=== PATIENT | female | born 1935 | race Caucasian/White ===

== ENCOUNTER 2018-05-06 02:31 | Observation (INO) ==
--- NOTE | 2018-05-06 03:21 | ED ---
HPI General Chief Complaint: Chest Pain Stated Complaint: Chest,back & rt arm pain x 2 hrs Time Seen by Provider: 05/06/18 03:13 Source: patient Mode of arrival: ambulatory Limitations: no limitations History of Present Illness HPI narrative: 83-year-old female presents from home for complaint of chest pain and right shoulder pain. Patient states she was awakened from sleep with 7 /10 back pain radiating into the chest. No shortness of breath no sweats no nausea no vomiting no mid scapular pain no abdominal pain. Patient has history of hypertension dyslipidemia. Patient has not had previous similar evaluation for chest pain or back pain. No history of known aortic disease aneurysm CAD or arrhythmia. Patient states discomfort at this time is 3-4/10 in intensity and is some improved. Patient took no medications prior to arrival to the emergency department. Patient also denies any recent febrile illness pleuritic chest pain near syncope or syncope. Patient also denies history of gastritis peptic ulcer disease pancreatitis. 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 Patient is not actively taking aspirin. MD complaint: Reports chest pain STEMI Alert: No Onset (ago): hour(s) Duration: constant and improved Onset: during rest and awoke with symptoms Pain location: Reports substernal Severity: moderate Quality: Reports tightness, aching and heaviness Pain radiation: Reports none Relieving factors: nothing Exacerbating factors: nothing Context: Denies recent illness, recent surgery, recent immobilization, recent travel, trauma/injury, new medications and history of DVT/PE Associated symptoms: Denies nausea, vomiting, diaphoresis, dyspnea, sense of impending doom, syncope, palpitations, fever, cough and leg swelling Treatments prior to arrival chest pain: Reports none Related Data On Oral Contraceptives: No Home Medications Medication Instructions Recorded Confirmed Fish Oil 1,000 mg PO DAILY 05/06/18 05/06/18 calcium carbonate-vitamin D3 1 tab PO DAILY 05/06/18 05/06/18 [Calcium 500 + D] cholecalciferol (vitamin D3) 2,000 unit PO DAILY 05/06/18 05/06/18 [Vitamin D3] lisinopril 10 mg PO DAILY 05/06/18 05/06/18 omeprazole 20 mg PO DAILY 05/06/18 05/06/18 rosuvastatin 20 mg PO DAILY 05/06/18 05/06/18 Allergies Allergy/AdvReac Type Severity Reaction Status Date / Time codeine Allergy Unknown Nausea/Vomi Verified 05/06/18 03:15 ting Penicillins Allergy Rash Verified 05/06/18 04:11 pravastatin Allergy Anaphylaxis Verified 05/06/18 04:22 sulfamethoxazole Allergy Anaphylaxis Verified 05/06/18 04:22 [From Bactrim] trimethoprim [From Bactrim] Allergy Anaphylaxis Verified 05/06/18 04:22 Review of Systems ROS: all other systems reviewed are negative PMFSH Social History Social History Substance History: No History of Abuse Second Hand Smoke Exposure: No Smoking Status: Never smoker How Often Do You Have a Drink Containing Alcohol: Never Recent Travel in [facility] within the Last 8 Weeks: No Recent Out of Country Travel within the Last 8 Weeks: No Exam Narrative Exam Narrative: GENERAL: Well-nourished, well-developed patient. SKIN: Focused skin assessment warm/dry. HEAD: Normocephalic. EYES: No scleral icterus. No injection or drainage. NECK: Supple, trachea midline. No JVD or lymphadenopathy. CARDIOVASCULAR: Regular rate and rhythm without murmurs, gallops, or rubs. RESPIRATORY: Breath sounds equal bilaterally. No accessory muscle use. GASTROINTESTINAL: Abdomen soft, non-tender, nondistended. MUSCULOSKELETAL: No cyanosis, or edema. BACK: Nontender without obvious deformity. No CVA tenderness. Course Initial Documented Vital Signs Temperature 99.0 F 05/06/18 03:02 Pulse Rate 95 H 05/06/18 03:02 Respiratory Rate 18 05/06/18 03:02 Blood Pressure 178/86 H 05/06/18 03:02 Pulse Oximetry 98 05/06/18 03:02 Last Documented Vital Signs Temperature 99.0 F 05/06/18 03:02 Pulse Rate 64 05/06/18 06:10 Respiratory Rate 16 05/06/18 06:10 Blood Pressure 136/77 05/06/18 06:14 Pulse Oximetry 96 05/06/18 04:22 Medical Decision Making MDM Narrative Medical decision making narrative: 83-year-old female with hypertension dyslipidemia and chest pain presents for evaluation presently discomfort is 3-4/ 10 in intensity was 7/10 in intensity; EKG shows no acute ST elevation or injury pattern no prior history of cardiac disease or stress test. Patient denies tobacco use CAD or diabetes. IV access obtained specimens collected and sent for resulting patient placed on cardiac exercise physiologist administered aspirin and sublingual nitroglycerin After sublingual nitroglycerin x1 patient is chest pain-free aspirin taken without difficulty Cardiac enzymes are found to be in normal range and not elevated next patient's risk factor female age 83 with hypertension and dyslipidemia will be admitted to chest pain center per protocol call placed to [facility] service accepted by Dr Rod's service Medical Screen Exam Complete: Yes Emergency Medical Condition: Yes Differential Diagnosis Differential Diagnosis: Chest pain atypical chest pain [facility] [place] dissection Medical Records Medical records reviewed: Yes I reviewed the patient's medical records. Lab Data Lab results reviewed: Yes I reviewed the patient's lab results. Result diagrams: 05/06/18 03:20 05/06/18 03:20 Lab Results 05/06/18 05/06/18 Range/Units 03:20 03:20 CBC w Diff Auto diff final WBC 11.8 H (4.0-11.0) th/mm3 RBC 4.12 (4.00-5.30) mil/mm3 Hgb 12.9 (11.6-15.3) gm/dL Hct 38.6 (35.0-46.0) % MCV 93.8 (80.0-100.0) fL MCH 31.3 (27.0-34.0) pg MCHC 33.4 (32.0-36.0) % RDW 12.4 (11.6-17.2) % Plt Count 269 (150-450) th/mm3 MPV 8.3 (7.0-11.0) fL Neut % (Auto) 83.9 H (16.0-70.0) % Lymph % (Auto) 10.7 (9.0-44.0) % Coleman % (Auto) 3.2 (0.0-8.0) % Eos % (Auto) 1.8 (0.0-4.0) % Baso % (Auto) 0.4 (0.0-2.0) % Neut # (Auto) 9.9 H (1.8-7.7) th/mm3 Lymph # (Auto) 1.3 (1.0-4.8) th/mm3 Coleman # (Auto) 0.4 (0.0-0.9) th/mm3 Eos # (Auto) 0.2 (0.0-0.4) th/mm3 Baso # (Auto) 0.0 (0.0-0.2) th/mm3 WBC Differential . Differential Comment . Sodium 141 (136-145) meq/L Potassium 3.5 (3.5-5.1) meq/L Chloride 106 (98-107) meq/L Carbon Dioxide 28.2 (21.0-32.0) meq/L Anion Gap 7 (5-15) meq/L BUN 11 (7-18) mg/dL Creatinine 1.00 (0.50-1.00) mg/dL Estimated GFR 53 L (>89) mL/min Random Glucose 90 (74-106) mg/dL Calcium 8.4 L (8.5-10.1) mg/dL Magnesium 2.1 (1.5-2.5) mg/dL Total Bilirubin 0.5 (0.2-1.0) mg/dL AST 19 (15-37) U/L ALT 20 (10-53) U/L Alkaline Phosphatase 123 H (45-117) U/L Troponin I Less than 0.02 L (0.02-0.05) ng/mL Total Protein 7.0 (6.4-8.2) g/dL Albumin 3.3 L (3.4-5.0) g/dL Imaging Data Radiologist's impression: Chest X-Ray 05/06/18 03:16 CONCLUSION: No acute cardiopulmonary disease. ECG Data Attestation: I personally reviewed and interpreted this ECG as follows: (EKG ectopic atrial rhythm with out evidence of ST segment elevation ST segment depression or injury occasional PACs) Discharge Plan Discharge Disposition Patient Disposition: 30 Still Patient Discharge Condition Condition: Stable Discharge Details Diagnosis: Chest pain Physicians Team ED Provider: Jes Mclean Primary Care Provider: Paty Villarreal Attending Provider: Marlene Garza Discharge Interventions Interventions: Vital Signs Last Done: 05/06/18 03:02 Status ED Status: Admitted Observation Patient
[2018-05-06] MEDS ORDERED: Famotidine PF Inj 20 MG/2 ML Vial IV.PUSH ONE (03:22)
[2018-05-06 03:36] LABS: Baso % (Auto) 0.4 % (0.0-2.0); Eos # (Auto) 0.2 th/mm3 (0.0-0.4); Eos % (Auto) 1.8 % (0.0-4.0); Hematocrit 38.6 % (35.0-46.0); Hemoglobin 12.9 gm/dL (11.6-15.3); Lymph # (Auto) 1.3 th/mm3 (1.0-4.8); Lymph % (Auto) 10.7 % (9.0-44.0); Mean Corpuscular HGB Conc 33.4 % (32.0-36.0); Mean Corpuscular Hemoglobin 31.3 pg (27.0-34.0); Mean Corpuscular Volume 93.8 fL (80.0-100.0); Mean Platelet Volume 8.3 fL (7.0-11.0); Mono # (Auto) 0.4 th/mm3 (0.0-0.9); Mono % (Auto) 3.2 % (0.0-8.0); Neut # (Auto) 9.9 th/mm3 (1.8-7.7); Neut % (Auto) 83.9 % (16.0-70.0); Platelet Count 269 th/mm3 (150-450); Red Blood Count 4.12 mil/mm3 (4.00-5.30); Red Cell Distribution Width 12.4 % (11.6-17.2); White Blood Count 11.8 th/mm3 (4.0-11.0)
[2018-05-06 03:46] LABS: Chloride 106 meq/L (98-107); Potassium 3.5 meq/L (3.5-5.1); Sodium 141 meq/L (136-145)
[2018-05-06 03:49] LABS: Calcium 8.4 mg/dL (8.5-10.1)
[2018-05-06 03:50] LABS: Albumin 3.3 g/dL (3.4-5.0); Anion Gap 7 meq/L (5-15); Blood Urea Nitrogen 11 mg/dL (7-18); Carbon Dioxide 28.2 meq/L (21.0-32.0); Glucose,Random 90 mg/dL (74-106); Magnesium 2.1 mg/dL (1.5-2.5)
[2018-05-06 03:53] LABS: Alanine Aminotransferase 20 U/L (10-53); Aspartate Aminotransferase 19 U/L (15-37); Glomerular Filtration Rate 53 mL/min (>89)
[2018-05-06 03:56] LABS: Alkaline Phosphatase 123 U/L (45-117)
--- NOTE | 2018-05-06 04:00 | XR ---
EXAM DATE: 05/06/2018 3:38 AM EST AGE/SEX: 83 years / Female INDICATIONS: Upper chest pain for 4 hours CLINICAL DATA: This is the patient's initial encounter. Patient reports that signs and symptoms have been present for 1 day and indicates a pain score of 8/10. MEDICAL/SURGICAL HISTORY: None. None. COMPARISON: No prior exams available for comparison. FINDINGS: A single AP view of the chest demonstrates the lungs to be symmetrically aerated without evidence of mass, infiltrate or effusion. The cardiomediastinal contours are unremarkable. Osseous structures a re intact. CONCLUSION: No acute cardiopulmonary disease. Electronically signed by: Bert Matthews MD 05/06/2018 3:58 AM EST
[2018-05-06 04:23] VITALS: O2SAT 96
[2018-05-06 07:33] LABS: Creatine Kinase 53 U/L (26-192)
[2018-05-06] MEDS ORDERED: Aspirin 325 MG Tablet PO SCH (09:00)
--- NOTE | 2018-05-06 09:57 | ECG ---
Date Performed: 05/06/2018 Time Performed: 06:19:59 PTAGE: 83 years EKG: Sinus rhythm INFERIOR MYOCARDIAL INFARCTION Incomplete right bundle branch block ABNORMAL ECG Compared to prior electrocardiogram, sinus rhythm appears to have replaced ectopic atrial rhythm. PREVIOUS TRACING : 05/06/2018 02.45 DOCTOR: Rufus Yu Interpretating Date/Time 05/06/2018 09:57:23
[2018-05-06 10:01] VITALS: RESP 18; TEMP 97.8
--- NOTE | 2018-05-06 10:03 | ECG ---
Date Performed: 05/06/2018 Time Performed: 02:45:39 PTAGE: 83 years EKG: ECTOPIC ATRIAL RHYTHM WITH OCCASIONAL SUPRAVENTRICULAR PREMATURE COMPLEXES INFERIOR MYOCARD IAL INFARCTION ABNORMAL ECG I am concerned that there has been abnormal lead placement and would re peat the EKG. PREVIOUS TRACING : 02/13/2002 16.12 DOCTOR: Rufus Yu Interpretating Date/Time 05/06/2018 10:01:37
--- NOTE | 2018-05-06 10:07 | ECG ---
Date Performed: 05/06/2018 Time Performed: 09:27:51 PTAGE: 83 years EKG: Sinus rhythm INFERIOR MYOCARDIAL INFARCTION Incomplete right bundle branch block ABNORMAL ECG No significant ch candelario from prior electrocardiogram. PREVIOUS TRACING : 05/06/2018 06.19 DOCTOR: Rufus Yu Interpretating Date/Time 05/06/2018 10:05:45
[2018-05-06 10:21] LABS: Creatine Kinase 58 U/L (26-192)
[2018-05-06] MEDS ORDERED: Lisinopril 10 MG Tablet PO SCH (10:45)
[2018-05-06] MEDS ORDERED: Pantoprazole Sodium 20 MG DR Tablet PO SCH (10:45)
--- NOTE | 2018-05-06 10:53 | P.HP ---
History of Present Illness Primary Care Physician: Paty Villarreal MD Chief Complaint: Right shoulder pain History of Present Illness: 83-year-old female with known history of hypertension, hyperlipidemia , Rainey's esophagus, who presented the hospital because acute onset of right shoulder pain. Patient states that she is in normal state of health until last evening. She went to bed as normal and woke up at approximately 11 PM with a pain in her left trapezius region and she got out of bed because she thought she slept on it wrong and had a little muscle problems though she tried to move around and stretch it out, however did not improve. She states that she started developing a funny sensation in her right arm, could not explain whether there is any pain or numbness. She called her son-in-law who notified her to go to the emergency department for evaluation. The patient denied any chest pain, shortness of breath, dyspnea, lightheadedness, dizziness, diaphoresis, nausea, vomiting. Patient indicates that the pain has remained constant at 8/10 on a pain scale without any relief. Patient was given aspirin , Pepcid, nitroglycerin emergency department without any benefit. It was recommended by the ER physician that patient be observed in the chest pain center for further evaluation. Patient does have increased risk factors to include age, hypertension, hyper lipidemia, history of tobacco use, family history of heart disease. Her symptoms could be a coronary variant. Patient denies any previous cardiac workup. - Diagnosis (1) Shoulder pain Review of Systems All other systems reviewed negative except as stated in HPI Musculoskeletal: Reports back pain, Reports stiffness PMFSH - History History Provided By: Patient - Medical History Medical History: Medical History (Last Updated 05/06/18 @ 10:41 by ARSH Alfaro) Barretts esophagus History of tobacco use Hyperlipidemia Hypertension - Surgical History Surgical History: Surgical History (Last Updated 05/06/18 @ 10:42 by ARSH Alfaro) History of hysterectomy Status post right breast lumpectomy - Family History Family History: Family History (Last Updated 05/06/18 @ 10:42 by ARSH Alfaro) Mother History of heart disease Father History of stroke - Tobacco History Second Hand Smoke Exposure: No Smoking Status: Former smoker Number of Pack Years (if former smoker): 60 - Alcohol History How Often Do You Have a Drink Containing Alcohol: Never - Substance Use History Substance History: No History of Abuse - Travel History Recent Travel in the [place] Within the Last 8 Weeks: No Recent Travel Out of the Country Within the Last 8 Weeks: No - Immunization History Tetanus Immunization: <5 Years Medications and Allergies Active Medications: Active Medications Aspirin (Aspirin) 325 mg PO DAILY [facility] Last Admin: 05/06/18 09:18 Dose: Not Given Cyclobenzaprine HCl (Flexeril) 5 mg PO Q8H PRN PRN Reason: MUSCLE PAIN Lisinopril (Prinivil) 10 mg PO DAILY [facility] Nitroglycerin (Nitrostat Sl) 0.4 mg SL Q5M PRN PRN Reason: CHEST PAIN Non-Formulary Medication (Omeprazole [Omeprazole]) 20 mg PO DAILY [facility] Non-Formulary Medication (Rosuvastatin [Rosuvastatin]) 20 mg PO DAILY [facility] Sodium Chloride (Ns Flush) 2 ml IV.FLUSH UNSCH PRN PRN Reason: FLUSH AFTER USING IV ACCESS Sodium Chloride (Ns Flush) 2 ml IV.FLUSH BID [facility] Last Admin: 05/06/18 09:15 Dose: 2 ml Sodium Chloride (Ns Flush) 2 ml IV.FLUSH PRN PRN PRN Reason: FLUSH AFTER USING IV ACCESS Tramadol HCl (Ultram) 50 mg PO Q8H PRN PRN Reason: PAIN SCALE 6 TO 10 Allergies Allergy/AdvReac Type Severity Reaction Status Date / Time codeine Allergy Unknown Nausea/Vomi Verified 05/06/18 03:15 ting Penicillins Allergy Rash Verified 05/06/18 04:11 pravastatin Allergy Anaphylaxis Verified 05/06/18 04:22 sulfamethoxazole Allergy Anaphylaxis Verified 05/06/18 04:22 [From Bactrim] trimethoprim [From Bactrim] Allergy Anaphylaxis Verified 05/06/18 04:22 Home Medications Medication Instructions Recorded Confirmed Type Fish Oil 1,000 mg PO DAILY 05/06/18 05/06/18 History calcium carbonate-vitamin D3 1 tab PO DAILY 05/06/18 05/06/18 History [Calcium 500 + D] cholecalciferol (vitamin D3) 2,000 unit PO DAILY 05/06/18 05/06/18 History [Vitamin D3] lisinopril 10 mg PO DAILY 05/06/18 05/06/18 History omeprazole 20 mg PO DAILY 05/06/18 05/06/18 History rosuvastatin 20 mg PO DAILY 05/06/18 05/06/18 History Exam Vital signs: Vital Signs 05/06/18 03:02 05/06/18 04:04 05/06/18 04:22 Temperature 99.0 F Pulse Rate 95 H 83 79 Respiratory Rate 18 18 Blood Pressure 178/86 H 127/61 Pulse Oximetry 98 94 L 96 05/06/18 06:10 05/06/18 06:14 05/06/18 08:00 Temperature 97.8 F Pulse Rate 64 77 Respiratory Rate 16 18 Blood Pressure 136/68 136/77 170/76 H Pulse Oximetry 96 Intake & Output 05/05/18 05/06/18 05/06/18 18:59 06:59 18:59 Weight 79.3 kg Narrative: GENERAL: Well-developed, well-nourished, in no acute distress. alert and orientated HEENT: Head is normocephalic without any lesions or masses noted. Facial features are symmetric. Eyes: Pupils equal round reactive to light. Extraocular muscles are intact. Conjunctivae were clear. Oropharyngeal: Pharynx without any erythema edema. Tongue is midline without deviation. Buccal mucosa is moist without any masses or lesions NECK: Supple without any masses. Trachea midline no deviation. No JVD, no bruits are appreciated CARDIAC: Regular rhythm, regular rate. S1/S2 are heard. No murmurs gallops or rubs. LUNGS: Clear to auscultation bilaterally. No wheeze, rhonchi or rales. No use of accessory muscles on inspiration or expiration. ABDOMEN: Soft, nontender. Nondistended. Bowel sounds heard in all 4 quadrants. No organomegaly or masses. Negative rebound, negative guarding EXTREMITIES: No edema, pulses are equal bilaterally. No cyanosis or clubbing NEUROLOGY: Mood and affect appear appropriate. Cranial nerves II through XII grossly intact. Muscle strength 5/5 in upper and lower extremities bilaterally. Deep tendon reflexes are 2+ in upper and lower extremities bilaterally. MUSCULOSKELETAL: Patient has obvious reproducible tenderness noted in the paraspinal musculature in the right side at approximately T1-T4. This is the exact pain that she was experiencing that brought her to the hospital. There are mild spasms noted and with direct massage and stretching of the paraspinal musculature, trapezius musculature the pain was improved. Results - Labs CBC & Chem 7: 05/06/18 03:20 05/06/18 03:20 Labs: Laboratory Results - last 24 hr 05/06/18 05/06/18 05/06/18 03:20 03:20 07:02 CBC w Diff Auto diff final WBC 11.8 H RBC 4.12 Hgb 12.9 Hct 38.6 MCV 93.8 MCH 31.3 MCHC 33.4 RDW 12.4 Plt Count 269 MPV 8.3 Neut % (Auto) 83.9 H Lymph % (Auto) 10.7 Mcintosh % (Auto) 3.2 Eos % (Auto) 1.8 Baso % (Auto) 0.4 Neut # (Auto) 9.9 H Lymph # (Auto) 1.3 Mcintosh # (Auto) 0.4 Eos # (Auto) 0.2 Baso # (Auto) 0.0 WBC Differential . Differential Comment . Sodium 141 Potassium 3.5 Chloride 106 Carbon Dioxide 28.2 Anion Gap 7 BUN 11 Creatinine 1.00 Estimated GFR 53 L Random Glucose 90 Calcium 8.4 L Magnesium 2.1 Total Bilirubin 0.5 AST 19 ALT 20 Alkaline Phosphatase 123 H Total Creatine Kinase 53 Troponin I Less than 0.02 L Less than 0.02 L Total Protein 7.0 Albumin 3.3 L 05/06/18 09:20 CBC w Diff WBC RBC Hgb Hct MCV MCH MCHC RDW Plt Count MPV Neut % (Auto) Lymph % (Auto) Mcintosh % (Auto) Eos % (Auto) Baso % (Auto) Neut # (Auto) Lymph # (Auto) Mcintosh # (Auto) Eos # (Auto) Baso # (Auto) WBC Differential Differential Comment Sodium Potassium Chloride Carbon Dioxide Anion Gap BUN Creatinine Estimated GFR Random Glucose Calcium Magnesium Total Bilirubin AST ALT Alkaline Phosphatase Total Creatine Kinase 58 Troponin I Less than 0.02 L Total Protein Albumin - Imaging Impressions Chest X-Ray 05/06/18 03:16 CONCLUSION: No acute cardiopulmonary disease. Caprini VTE Risk Assessment Caprini VTE Risk Assessment: Moderate/High Risk (score >= 2) Caprini Risk Assessment Model: Point Value = 1 Point Value = 2 Point Value = 3 Point Value = 5 Age 41-60 Minor surgery BMI > 25 kg/m2 Swollen legs Varicose veins or History of unexplained or recurrent spontaneous Oral contraceptives or hormone replacement Sepsis (< 1 month) Serious lung disease, including pneumonia (< 1 month) Abnormal pulmonary function Acute myocardial infarction Congestive heart failure (< 1 month) History of inflammatory bowel disease Medical patient at bed rest Age 61-74 Arthroscopic surgery Major open surgery (> 45 min) Laparoscopic surgery (> 45 min) Malignancy Confined to bed (> 72 hours) Immobilizing plaster cast Central venous access Age >= 75 History of VTE Family history of VTE Factor V Leiden Prothrombin [id number] Lupus anticoagulant Anticardiolipin antibodies Elevated serum homocysteine Heparin-induced thrombocytopenia Other congenital or acquired thrombophilia Stroke (< 1 month) Elective arthroplasty Hip, pelvis, or leg fracture Acute spinal cord injury (< 1 month) Prophylaxis Regimen: Total Risk Factor Score Risk Level Prophylaxis Regimen 0-1 Low Early ambulation 2 Moderate Order ONE of the following: *Sequential Compression Device (SCD) *Heparin 5000 units SQ BID 3-4 Higher Order ONE of the following medications: *Heparin 5000 units SQ TID *Enoxaparin/Lovenox 40 mg SQ daily (WT < 150 kg, CrCl > 30 mL/min) *Enoxaparin/Lovenox 30 mg SQ daily (WT < 150 kg, CrCl > 10-29 mL/min) *Enoxaparin/Lovenox 30 mg SQ BID (WT < 150 kg, CrCl > 30 mL/min) AND/OR *Sequential Compression Device (SCD) 5 or more Highest Order ONE of the following medications: *Heparin 5000 units SQ TID (Preferred with Epidurals) *Enoxaparin/Lovenox 40 mg SQ daily (WT < 150 kg, CrCl > 30 mL/min) *Enoxaparin/Lovenox 30 mg SQ daily (WT < 150 kg, CrCl > 10-29 mL/min) *Enoxaparin/Lovenox 30 mg SQ BID (WT < 150 kg, CrCl > 30 mL/min) AND *Sequential Compression Device (SCD) Assessment and Plan - Assessment (1) Shoulder pain Code(s): M25.519 - Pain in unspecified shoulder Status: Acute - Plan Right-sided shoulder/upper back pain -His symptoms could be a angina variant, patient does have increased risk factors for coronary artery disease to include age, hyperlipidemia, hypertension , history of tobacco use, family history of heart disease -Patient has been ruled out for acute coronary event with serial cardiac enzymes that are negative -Serial EKGs were performed which did show sinus rhythm, inferior myocardial infarction with incomplete right bundle branch block. No significant change from prior electrocardiogram -I discussed with the patient that we could proceed with myocardial perfusion study to rule out any underlying ischemia given her risk factors, objective findings. Patient is deferring any further testing at this time. She believes that it is musculoskeletal in nature. It was discussed with the patient that she needs to follow-up with her regular medical doctor for continued management -Physical exam does elicit reproducible palpable tenderness at the site of her pain and discomfort with relief of discomfort with direct massage and stretching -We will start Flexeril 5 mg 3 times daily, K thermia, tramadol for pain control -Patient deferred any aspirin or NSAIDs due to Rainey's esophagus Hypertension, hyperlipidemia, Rainey's esophagus -Continue home medications Discharge Planning: Discharge home in stable condition Activity: Ad kellie. Diet: Healthy heart diet Medication per medication reconciliation Follow-up with primary medical doctor in 1 week
[2018-05-06 11:24] VITALS: BP 160/85; PULSE 79
== END 2018-05-06 11:55 | disposition home or self-care (01) ==
LOC: PHEDA 02:31 → PHED 02:31 → PH3 07:02
PROVIDERS: ADMIT Hospitalist; ATTEND Hospitalist